=== PATIENT | female | born 1990 | race Caucasian/White ===

== ENCOUNTER 2017-04-01 17:58 | Emergency (ER) | payer MEDICAID ==
[~2017-04-01] VITALS: Ht 167.6 cm; Wt 103.0 kg
[~2017-04-01 17:58] MED LIST: ARIP2TAB9 PO; ASPI-692 PO; BIRTH CONTROL PATCH; CEPH500C24 PO; CIPR-344 PO; CYCL10TA29 PO; DICY20TA96 PO; ESC10 PO; ESCI20TA38 PO; FAMO20TA28 PO; FLU20 PO; HYDR-317 PO; HYDR-4309 PO; IBU600 PO; IBUP-1687 PO; IBUP200C71 PO; IBUP800T37 PO; KET10 PO; LOR5/325 PO; MED150I IM; MOOD STABILIZER; NO ROUTINE MEDS; NORG1TAB2 PO; OMEP-125 PO; OND4 PO; ONDA4TAB PO; OXYC-865 PO; PANT40TA65 PO; PER PO; PHEN200T32 PO; PREN-127 PO; PREN-85 PO; PROM-110 PO; RANI-324 PO; SULF-198 PO; [UNRECOGNIZED DRUG - OTHER] PO; birth control PO
--- NOTE | 2017-04-01 18:04 | ER Report ---
History and Physical Time Seen By MD: 18:03 HPI/ROS CHIEF COMPLAINT: Fall, 19 weeks , vaginal spotting HISTORY OF PRESENT ILLNESS: 26-year-old female, G2, P1, status post open fall on ice yesterday. Tonight, she notes some dark vaginal spotting. She notes no nausea or vomiting. She notes no lower abdominal pain or pressure. She notes decreased movement. Her SKATING CARHOP is Dr. Carrizales. REVIEW OF SYSTEMS: Respiratory: No cough, no dyspnea. Cardiovascular: No chest pain, no palpitations. Gastrointestinal: No vomiting, no abdominal pain. Musculoskeletal: No back pain. Allergies: Coded Allergies: diphenhydramine (Verified Allergy, Mild, HIVES, 04/01/17) Uncoded Allergies: PEROXIDE (Allergy, Intermediate, BLISTERS, 11/26/09) Home Meds Reported Medications Vits W-Ca,Fe,Fa(<1MG) ( VITAMINS) 1 Each Tablet, 1 EACH PO DAILY, TAB 01/15/17 Reviewed Nurses Notes: Yes Old Medical Records Reviewed: Yes Hx Smoking: No Smoking Status: Never Smoker Exposure to Second Hand Smoke?: No Hx Substance Use Disorder: No Hx Alcohol Use: No Constitutional Vital Sign - Last 24 Hours 04/01/17 04/01/17 04/01/17 04/01/17 18:05 18:07 18:28 18:30 Temp 98.6 Pulse 84 87 Resp 18 B/P (MAP) 127/68 (87) 127/68 103/69 (80) Pulse Ox 97 95 O2 Delivery Room Air 04/01/17 04/01/17 04/01/17 04/01/17 18:58 19:00 19:28 19:30 Pulse 85 79 B/P (MAP) 107/63 (78) 104/55 (71) Pulse Ox 96 97 04/01/17 20:06 Pulse 85 Resp 16 B/P (MAP) 132/80 (97) Pulse Ox 92 O2 Delivery Room Air Physical Exam Vital signs stable, heart tones 147 General Appearance: The patient is alert, has no immediate need for airway protection and no current signs of toxicity. Eyes: Pupils equal and round no injection. Respiratory: Chest is non tender, lungs are clear to auscultation. Cardiac: regular rate and rhythm Gastrointestinal: Abdomen is soft and non tender, no masses, bowel sounds normal. Musculoskeletal: Neck: Neck is supple and non tender. Extremities have full range of motion and are non tender. Skin: No rashes or lesions. DIFFERENTIAL DIAGNOSIS: After history and physical exam differential diagnosis was considered for vaginal bleeding including but not limited to ectopic , menses, placenta previa, miscarriage, and dysfunctional uterine bleeding. Medical Decision Making Data Points Result Diagram: 04/01/17182604/01/171826 Laboratory Hematology Test 04/01/17 18:04 04/01/17 18:27 Urine Color Yellow Urine Clarity Slightly-cloudy Urine pH 5.0 pH (4.8-9.5) Urine Specific [place] 1.030 Urine Protein Negative mg/dL (NEGATIVE) Urine Glucose (UA) Negative mg/dL (NEGATIVE) Urine Ketones Negative mg/dL (NEGATIVE) Urine Blood Negative (NEGATIVE) Urine Nitrite Negative (NEGATIVE) Urine Bilirubin Negative (NEGATIVE) Urine Urobilinogen Negative mg/dL (0.2-1.9) Urine Leukocyte Esterase Negative (NEGATIVE) Urine RBC <1 /HPF (0-2/HPF) Urine WBC 1 /HPF (0-5/HPF) Urine Squamous Epithelial Cells Many /LPF (</=FEW) Urine Bacteria Negative /HPF (NONE-FEW) Urine Mucus Few /HPF (NONE-FEW) Red Blood Count 4.82 M/uL (4.17-5.56) Mean Corpuscular Volume 81.6 fL (80.0-96.0) Mean Corpuscular Hemoglobin 27.4 pg (26.0-33.0) Mean Corpuscular Hemoglobin Concent 33.6 g/dL (32.0-36.0) Red Cell Distribution Width 13.8 % (11.5-14.5) Mean Platelet Volume 7.5 fL (7.2-11.1) Neutrophils (%) (Auto) 72.9 % (39.4-72.5) Lymphocytes (%) (Auto) 6.1 % (17.6-49.6) Monocytes (%) (Auto) 18.6 % (4.1-12.4) Eosinophils (%) (Auto) 1.5 % (0.4-6.7) Basophils (%) (Auto) 0.9 % (0.3-1.4) Nucleated RBC Relative Count (auto) 0.0 /100WBC Neutrophils # (Auto) 6.0 K/uL (2.0-7.4) Lymphocytes # (Auto) 0.5 K/uL (1.3-3.6) Monocytes # (Auto) 1.5 K/uL (0.3-1.0) Eosinophils # (Auto) 0.1 K/uL (0.0-0.5) Basophils # (Auto) 0.1 K/uL (0.0-0.1) Nucleated RBC Absolute Count (auto) 0.00 K/uL Prothrombin Time 13.1 seconds (12.0-14.4) Prothromb Time International Ratio 0.99 Activated Partial Thromboplast Time 28 seconds (23-35) Sodium Level 136 mmol/L (137-145) Potassium Level 3.8 mmol/L (3.5-5.0) Chloride Level 103 mmol/L (98-107) Carbon Dioxide Level 24 mmol/L (22-31) Blood Urea Nitrogen 9 mg/dl (7-18) Creatinine 0.60 mg/dl (0.52-1.04) Glomerular Filtration Rate Calc > 60.0 Random Glucose 92 mg/dl (75-110) Calcium Level 8.9 mg/dl (8.4-10.2) Total Bilirubin 0.2 mg/dl (0.2-1.3) Aspartate Amino Transf (AST/SGOT) 12 U/L (0-35) Alanine Aminotransferase (ALT/SGPT) 19 U/L (0-56) Alkaline Phosphatase 40 U/L (0-126) Total Protein 6.5 gm/dl (6.3-8.2) Albumin 3.5 g/dl (3.5-5.0) Human Chorionic Gonadotropin, Qual Positive (NEGATIVE) Human Chorionic Gonadotropin, Quant 5719 mIU/ml Chemistry Test 04/01/17 18:04 04/01/17 18:27 Urine Color Yellow Urine Clarity Slightly-cloudy Urine pH 5.0 pH (4.8-9.5) Urine Specific [place] 1.030 Urine Protein Negative mg/dL (NEGATIVE) Urine Glucose (UA) Negative mg/dL (NEGATIVE) Urine Ketones Negative mg/dL (NEGATIVE) Urine Blood Negative (NEGATIVE) Urine Nitrite Negative (NEGATIVE) Urine Bilirubin Negative (NEGATIVE) Urine Urobilinogen Negative mg/dL (0.2-1.9) Urine Leukocyte Esterase Negative (NEGATIVE) Urine RBC <1 /HPF (0-2/HPF) Urine WBC 1 /HPF (0-5/HPF) Urine Squamous Epithelial Cells Many /LPF (</=FEW) Urine Bacteria Negative /HPF (NONE-FEW) Urine Mucus Few /HPF (NONE-FEW) White Blood Count 8.3 k/uL (4.5-11.0) Red Blood Count 4.82 M/uL (4.17-5.56) Hemoglobin 13.2 g/dL (12.0-16.0) Hematocrit 39.3 % (34.0-47.0) Mean Corpuscular Volume 81.6 fL (80.0-96.0) Mean Corpuscular Hemoglobin 27.4 pg (26.0-33.0) Mean Corpuscular Hemoglobin Concent 33.6 g/dL (32.0-36.0) Red Cell Distribution Width 13.8 % (11.5-14.5) Platelet Count 209 K/uL (150-450) Mean Platelet Volume 7.5 fL (7.2-11.1) Neutrophils (%) (Auto) 72.9 % (39.4-72.5) Lymphocytes (%) (Auto) 6.1 % (17.6-49.6) Monocytes (%) (Auto) 18.6 % (4.1-12.4) Eosinophils (%) (Auto) 1.5 % (0.4-6.7) Basophils (%) (Auto) 0.9 % (0.3-1.4) Nucleated RBC Relative Count (auto) 0.0 /100WBC Neutrophils # (Auto) 6.0 K/uL (2.0-7.4) Lymphocytes # (Auto) 0.5 K/uL (1.3-3.6) Monocytes # (Auto) 1.5 K/uL (0.3-1.0) Eosinophils # (Auto) 0.1 K/uL (0.0-0.5) Basophils # (Auto) 0.1 K/uL (0.0-0.1) Nucleated RBC Absolute Count (auto) 0.00 K/uL Prothrombin Time 13.1 seconds (12.0-14.4) Prothromb Time International Ratio 0.99 Activated Partial Thromboplast Time 28 seconds (23-35) Glomerular Filtration Rate Calc > 60.0 Calcium Level 8.9 mg/dl (8.4-10.2) Total Bilirubin 0.2 mg/dl (0.2-1.3) Aspartate Amino Transf (AST/SGOT) 12 U/L (0-35) Alanine Aminotransferase (ALT/SGPT) 19 U/L (0-56) Alkaline Phosphatase 40 U/L (0-126) Total Protein 6.5 gm/dl (6.3-8.2) Albumin 3.5 g/dl (3.5-5.0) Human Chorionic Gonadotropin, Qual Positive (NEGATIVE) Human Chorionic Gonadotropin, Quant 5719 mIU/ml Coagulation Test 04/01/17 18:27 Prothrombin Time 13.1 seconds Prothromb Time International Ratio 0.99 Activated Partial Thromboplast Time 28 seconds Urinalysis Test 04/01/17 18:04 Urine Color Yellow Urine Clarity Slightly-cloudy Urine pH 5.0 pH (4.8-9.5) Urine Specific [place] 1.030 Urine Protein Negative mg/dL (NEGATIVE) Urine Glucose (UA) Negative mg/dL (NEGATIVE) Urine Ketones Negative mg/dL (NEGATIVE) Urine Blood Negative (NEGATIVE) Urine Nitrite Negative (NEGATIVE) Urine Bilirubin Negative (NEGATIVE) Urine Urobilinogen Negative mg/dL (0.2-1.9) Urine Leukocyte Esterase Negative (NEGATIVE) Urine RBC <1 /HPF (0-2/HPF) Urine WBC 1 /HPF (0-5/HPF) Urine Squamous Epithelial Cells Many /LPF (</=FEW) Urine Bacteria Negative /HPF (NONE-FEW) Urine Mucus Few /HPF (NONE-FEW) EKG/Imaging Imaging Results: Ultrasound of the greater than 13 week OB was obtained. The results of the study are OB Ultrasound > 14 weeks limited HISTORY: Fall on ice. Baby motion decreased, little spotting tonight. COMPARISON STUDIES: None available FINDINGS: Intrauterine gestations: one presentation: Variable heart rate: 143 bpm Amniotic fluid index: 10.9 cm Largest amniotic fluid pocket 4.1 cm Placenta: Anterior fundal without previa or focal abnormality. Uterus: gravid, otherwise normal Maternal adnexa: Unremarkable Cervix: 4.9 cm and closed. Gestational Parameters: BPD: 4.5 cm 19 weeks and 4 days HC: 17.1 cm 19 weeks and 6 days AC: 14.6 cm 20 weeks and 0 days FL: 3.2 cm 19 weeks and 6 days Average ultrasound age (AUA): 19 weeks and 6 days JAVED: 08/20/2017 by ultrasound and 08/22/2017 clinically. Estimated weight (EFW): 317 g EFW: 62 percentile Anatomic Survey: Not performed due to limited exam. IMPRESSION: 1. Single live intrauterine gestation; estimated ultrasound age 19 weeks and 6 days. 2. No acute abnormality. 3. Other findings and measurements as above. The study was read by the radiologist. I viewed the images myself on the PACS system. ED Course/Re-evaluation ED Course Patient was admitted to an examination room. H&P was done. The difficult diagnosis was considered. Patient had a peripheral IV established. Diagnostic bloods were drawn. Patient was treated with 1 L of normal saline. Diagnostic ultrasound was ordered. Patient's abdominal exam is benign and unremarkable. Patient notes minimal spotting of dark blood. Ultrasound is unremarkable. Results are discussed with the patient. She is advised to days of bed rest. She is advised to follow-up with SKATING CARHOP. Dr. Carrizales if any further bleeding or symptoms occur. Decision to Disposition Date: Apr 01, 2017 Decision to Disposition Time: 19:48 Depart Departure Latest Vital Signs Vital Signs Date Time Temp Pulse Resp B/P (MAP) Pulse Ox O2 Delivery O2 Flow Rate FiO2 04/01/17 20:06 85 16 132/80 (97) 92 Room Air 04/01/17 18:07 98.6 Impression: Primary Impression: Coccyx contusion Additional Impressions: 19 weeks gestation of Vaginal spotting Condition: Improved Disposition: HOME OR SELF-CARE Patient Instructions: (ED) Additional Instructions: Follow-up with Dr. Carrizales if spotting continues in 2-3 days Problem Qualifiers Primary Impression: Coccyx contusion Encounter type: initial encounter Qualified Codes: S30.0XXA - Contusion of lower back and pelvis, initial encounter MANUEL GARZA DO Apr 01, 2017 18:04
[2017-04-01] MEDS ORDERED: NS(*) 0.9% 1000 ML BAG 1,000 ML IV ONE (18:08)
[2017-04-01 18:34] LABS: PLATELET COUNT, AUTOMATED 209 K/uL (150-450)
[2017-04-01 18:43] LABS: INR 0.99
[2017-04-01 20:06] VITALS: BP 132/80
--- NOTE | 2017-04-01 20:13 | RADIOLOGY IMAGING REPORT ---
FACILITY: [facility] - [place], [place] PATIENT NAME: Reina Amin : 1990 MR: [id number] V: [id number] EXAM DATE: ORDERING PHYSICIAN: MANUEL GARZA TECHNOLOGIST: Location: Patient: Reina Amin : 1990 Visit/Account:[id number] Date of Sevice: 04/01/2017 OB Ultrasound > 14 weeks limited HISTORY: Fall on ice. Baby motion decreased, little spotting tonight. COMPARISON STUDIES: None available FINDINGS: Intrauterine gestations: one presentation: Variable heart rate: 143 bpm Amniotic fluid index: 10.9 cm Largest amniotic fluid pocket 4.1 cm Placenta: Anterior fundal without previa or focal abnormality. Uterus: gravid, otherwise normal Maternal adnexa: Unremarkable Cervix: 4.9 cm and closed. Gestational Parameters: BPD: 4.5 cm 19 weeks and 4 days HC: 17.1 cm 19 weeks and 6 days AC: 14.6 cm 20 weeks and 0 days FL: 3.2 cm 19 weeks and 6 days Average ultrasound age (AUA): 19 weeks and 6 days JAVED: 08/20/2017 by ultrasound and 08/22/2017 clinically. Estimated weight (EFW): 317 g EFW: 62 percentile Anatomic Survey: Not performed due to limited exam. IMPRESSION: 1. Single live intrauterine gestation; estimated ultrasound age 19 weeks and 6 days. 2. No acute abnormality. 3. Other findings and measurements as above. Report Dictated By: Rashid Patricio at 04/01/2017 8:04 PM Report E-Signed By: Rashid Patricio at 04/01/2017 8:08 PM WSN:[id number]
== END 2017-04-01 20:06 | disposition home or self-care (01) ==
LOC: ER 18:06
DX: O46.92 Antepartum hemorrhage, unspecified, second trimester (principal); Z3A.19 19 weeks gestation of pregnancy; S30.0XXA Contusion of lower back and pelvis, initial encounter; W00.0XXA Fall on same level due to ice and snow, initial encounter
CPT/HCPCS: 76805; 81001; 84702; 84703; 85025; 85610; 85730; 96360; 96361; 99284; J7030; 82040; 82247; 82310; 82374; 82435; 82565; 82947; 84075; 84132; 84155; 84295; 84450; 84460; 84520

== ENCOUNTER 2017-08-08 17:25 | Outpatient (CLI) | payer MEDICAID ==
[~2017-08-08] VITALS: Ht 168.9 cm; Wt 112.9 kg
[~2017-08-08 17:25] MED LIST changes: -RANI-324 PO; +RANI-366 PO
[2017-08-08 17:55] VITALS: BP 138/63; Ht 168.9 cm; Wt 112.9 kg
[2017-08-08] MEDS ORDERED: ACETAMINOPHEN 500 MG TAB PO PRN (18:05)
[2017-08-08 18:26] LABS: PLATELET COUNT, AUTOMATED 177 K/uL (150-450)
[2017-08-08] MEDS ORDERED: ACETA/BUTAL/CAFF 325/50/40 TAB PO ONE (19:10)
--- NOTE | 2017-08-08 19:44 | History & Physical ---
History of Present Illness Age of Patient: 27 : 2 Para or TPAL: 1 EDC per LMP: August 22, 2017 Estimated Gestational Age: 38.0 Chief Complaint Headache and elevated BP History of Present Illness Pt is 38 weeks and called me nancy to report she had a severe headache and was instructed by the office to call me if her BP was elevated. She noted a BP at [employer] of 146 systolic. She reports she has had a headache for several days without relief from Tylenol. Denies scotomata or RUQ abdominal pain. Denies obstetrical issues or complaints. She is scheduled for c/s next week to avoid 4th degree repair that she had before. Her BP here in observation have all been normal. She doesn't look terribly uncomfortable in bed with the TV displayed loud and her toddler running around screaming. She admits she drinks caffeinated soda daily. Past Medical, Surgical, Family and Obstetric Histories reviewed. Please see ACOG chart. History Obstetrical History: 1 prior vaginal delivery, vacuum assist with 3rd degree laceration. Allergies: Coded Allergies: diphenhydramine (Verified Allergy, Mild, HIVES, 04/01/17) Uncoded Allergies: PEROXIDE (Allergy, Intermediate, BLISTERS, 11/26/09) Med Rec Home Meds Reported Medications Vits W-Ca,Fe,Fa(<1MG) ( VITAMINS) 1 Each Tablet, 1 EACH PO DAILY, TAB 01/15/17 Review of Systems All Systems Reviewed/Normal: Yes, Except as Noted Other as per HPI Exam General Exam Vital Signs Vital Signs Date Time Temp Pulse Resp B/P (MAP) Pulse Ox O2 Delivery O2 Flow Rate FiO2 08/08/17 17:55 99.1 16 138/63 (88) 94 Room Air General Apperance: Alert/Awake/No Acute Distress Neuro: No Gross deficits Eyes: Normal Extraocular Movement & Vison Neck: No Masses Cardiovascular: Regular Rate and Rhythm Respiratory: No Respiratory Distress, Clear to Auscultation Abdomen: Soft, Non-Tender, Non-Distended, Gravid - Non-Tender, RUQ Non-Tender Integumentary: Skin Intact without Lesions or Rash Psychological: Alert & Oriented X3, Appropriate Mood & Affect Presentation: Vertex Fetus Heart Tone Variabilty: Minimal FHT Accelerations: 10X10 FHT Category: II Medical Decision Making Data Points Result Diagram: 08/08/17181108/08/171811 Vital Signs Date Time Temp Pulse Resp B/P (MAP) Pulse Ox O2 Delivery O2 Flow Rate FiO2 08/08/17 17:55 99.1 16 138/63 (88) 94 Room Air Hematology Test 08/08/17 17:55 08/08/17 18:12 Urine Random Creatinine 21.5 mg/dl Urine Random Total Protein 12 mg/dl (<11) Red Blood Count 4.53 M/uL (4.17-5.56) Mean Corpuscular Volume 79.1 fL (80.0-96.0) Mean Corpuscular Hemoglobin 27.4 pg (26.0-33.0) Mean Corpuscular Hemoglobin Concent 34.7 g/dL (32.0-36.0) Red Cell Distribution Width 14.5 % (11.5-14.5) Mean Platelet Volume 7.8 fL (7.2-11.1) Neutrophils (%) (Auto) 72.4 % (39.4-72.5) Lymphocytes (%) (Auto) 20.6 % (17.6-49.6) Monocytes (%) (Auto) 6.2 % (4.1-12.4) Eosinophils (%) (Auto) 0.5 % (0.4-6.7) Basophils (%) (Auto) 0.3 % (0.3-1.4) Nucleated RBC Relative Count (auto) 0.1 /100WBC Neutrophils # (Auto) 6.5 K/uL (2.0-7.4) Lymphocytes # (Auto) 1.8 K/uL (1.3-3.6) Monocytes # (Auto) 0.6 K/uL (0.3-1.0) Eosinophils # (Auto) 0.0 K/uL (0.0-0.5) Basophils # (Auto) 0.0 K/uL (0.0-0.1) Nucleated RBC Absolute Count (auto) 0.01 K/uL Sodium Level 136 mmol/L (137-145) Potassium Level 3.7 mmol/L (3.5-5.0) Chloride Level 103 mmol/L (98-107) Carbon Dioxide Level 22 mmol/L (22-31) Blood Urea Nitrogen 7 mg/dl (7-18) Creatinine 0.50 mg/dl (0.52-1.04) Glomerular Filtration Rate Calc > 60.0 Random Glucose 90 mg/dl (75-110) Uric Acid 4.7 mg/dl (2.5-7.5) Calcium Level 9.5 mg/dl (8.4-10.2) Total Bilirubin 0.2 mg/dl (0.2-1.3) Aspartate Amino Transf (AST/SGOT) 14 U/L (0-35) Alanine Aminotransferase (ALT/SGPT) 16 U/L (0-56) Alkaline Phosphatase 82 U/L (0-126) Lactate Dehydrogenase 330 U/L (0-590) Total Protein 5.6 gm/dl (6.3-8.2) Albumin 3.2 g/dl (3.5-5.0) Chemistry Test 08/08/17 17:55 08/08/17 18:12 Urine Random Creatinine 21.5 mg/dl Urine Random Total Protein 12 mg/dl (<11) White Blood Count 8.9 k/uL (4.5-11.0) Red Blood Count 4.53 M/uL (4.17-5.56) Hemoglobin 12.4 g/dL (12.0-16.0) Hematocrit 35.8 % (34.0-47.0) Mean Corpuscular Volume 79.1 fL (80.0-96.0) Mean Corpuscular Hemoglobin 27.4 pg (26.0-33.0) Mean Corpuscular Hemoglobin Concent 34.7 g/dL (32.0-36.0) Red Cell Distribution Width 14.5 % (11.5-14.5) Platelet Count 177 K/uL (150-450) Mean Platelet Volume 7.8 fL (7.2-11.1) Neutrophils (%) (Auto) 72.4 % (39.4-72.5) Lymphocytes (%) (Auto) 20.6 % (17.6-49.6) Monocytes (%) (Auto) 6.2 % (4.1-12.4) Eosinophils (%) (Auto) 0.5 % (0.4-6.7) Basophils (%) (Auto) 0.3 % (0.3-1.4) Nucleated RBC Relative Count (auto) 0.1 /100WBC Neutrophils # (Auto) 6.5 K/uL (2.0-7.4) Lymphocytes # (Auto) 1.8 K/uL (1.3-3.6) Monocytes # (Auto) 0.6 K/uL (0.3-1.0) Eosinophils # (Auto) 0.0 K/uL (0.0-0.5) Basophils # (Auto) 0.0 K/uL (0.0-0.1) Nucleated RBC Absolute Count (auto) 0.01 K/uL Glomerular Filtration Rate Calc > 60.0 Uric Acid 4.7 mg/dl (2.5-7.5) Calcium Level 9.5 mg/dl (8.4-10.2) Total Bilirubin 0.2 mg/dl (0.2-1.3) Aspartate Amino Transf (AST/SGOT) 14 U/L (0-35) Alanine Aminotransferase (ALT/SGPT) 16 U/L (0-56) Alkaline Phosphatase 82 U/L (0-126) Lactate Dehydrogenase 330 U/L (0-590) Total Protein 5.6 gm/dl (6.3-8.2) Albumin 3.2 g/dl (3.5-5.0) Urinalysis Test 08/08/17 17:55 Urine Random Creatinine 21.5 mg/dl Urine Random Total Protein 12 mg/dl (<11) VTE Prophylasis: Adult Deep Vein Thrombosis/Pulmonary: No Pharmacological Contraindicati: Pt at Low Risk for VTE Mechanical Contraindications: Pt at Low Risk for VTE Assessment and Plan Problems: (1) headache in third trimester Status: Acute Assessment & Plan: Strongly suspecting dehydration and caffeine headache. Labs are normal and clinically does not appear to be preeclampsia. Will hydrate and see if baby's tracing improves to category 1. If so, will discharge home with Fioricet for headache and keep plan for delivery next week. JACINTO NETTLES MD August 08, 2017 19:43
[2017-08-08] MEDS ORDERED: BUTA1TAB14 PO (19:45)
[2017-08-08] MEDS: LR(*) 1000 ML BAG 1,000 ML IV PRN ×2 (20:18→20:19)
[2017-08-08] MEDS ORDERED: ACET500T68 PO (20:23)
[2017-08-08] MEDS ORDERED: ACETA/BUTAL/CAFF 325/50/40 TAB PO PRN (21:00)
== END 2017-08-08 21:29 | disposition home or self-care (01) ==
LOC: UNDOADMIN 17:25 → OB 17:25 → L&D 17:25 → UNDODISIN 21:29 → L&D 21:29 → EDSTATUS 08-15 07:30
PROVIDERS: ATTEND Obstetrics & Gynecology
DX: O29.43 Spinal and epidural anesthesia induced headache during pregnancy, third trimester (principal); Z3A.38 38 weeks gestation of pregnancy
CPT/HCPCS: 36415; 82570; 83615; 84156; 84550; 85025; G0463; J7120; 82040; 82247; 82310; 82374; 82435; 82565; 82947; 84075; 84132; 84155; 84295; 84450; 84460; 84520; 99213

== ENCOUNTER 2017-08-09 19:28 | Observation (INO) | payer MEDICAID ==
[2017-08-08 17:55] VITALS: BMI 39.6
[2017-08-09] MEDS ORDERED: DLR(*) 1000 ML BAG 1,000 ML IV PRN (19:32)
[2017-08-09] MEDS ORDERED: LR(*) 1000 ML BAG 1,000 ML IV PRN (19:32)
== END 2017-08-09 20:50 | disposition home or self-care (01) ==
LOC: OB 19:28
PROVIDERS: ADMIT Obstetrics & Gynecology; ATTEND Obstetrics & Gynecology
DX: O36.8130 Decreased fetal movements, third trimester, not applicable or unspecified (principal); Z3A.38 38 weeks gestation of pregnancy
CPT/HCPCS: G0378; G0379

== ENCOUNTER → 2017-08-09 | Outpatient (CLI) | payer MEDICAID ==
[2017-08-08 17:55] VITALS: BMI 39.6
[~2017-08-09] MED LIST changes: +ACET500T68 PO; +BUTA1TAB14 PO
--- NOTE | 2017-08-09 13:54 | RADIOLOGY IMAGING REPORT ---
FACILITY: [facility] PATIENT NAME: Reina Amin : 1990 MR: [id number] V: [id number] EXAM DATE: ORDERING PHYSICIAN: JACINTO NETTLES TECHNOLOGIST: Location: [facility] - [place] Patient: Reina Amin : 1990 Visit/Account:[id number] Date of Sevice: 08/09/2017 Exam type: BIOPHYSICAL W/O NST History: Decreased movement Comparison: April 01, 2017. Findings: A single fetus was demonstrated in cephalic presentation. The heart rate was 156 bpm period ESTEFANÍA measured 13.82 cm. The deepest pocket measured 6.43 cm. The biophysical profile score was eight out of eight. Gestational age by last menstrual period 38 weeks and one day. IMPRESSION: 1. Biophysical profile score was eight out of eight Report Dictated By: Tawana Rico MD at 08/09/2017 1:49 PM Report E-Signed By: Tawana Rico MD at 08/09/2017 1:51 PM WSN:[email or web address]
== END ==
LOC: RAD 10:42
PROVIDERS: ATTEND Obstetrics & Gynecology
DX: O36.8130 Decreased fetal movements, third trimester, not applicable or unspecified (principal); Z3A.38 38 weeks gestation of pregnancy
CPT/HCPCS: 76819

== ENCOUNTER 2017-08-15 04:53 | Inpatient (IN) | payer MEDICAID ==
[~2017-08-15] VITALS: Ht 167.6 cm; Wt 93.0 kg
[2017-08-15] VITALS (25 sets, daily range): BP systolic 98–131; BP diastolic 43–86; Ht 167.6 cm; Wt 93.0 kg
[2017-08-15] MEDS ORDERED: DLR(*) 1000 ML BAG 1,000 ML IV PRN ×2 (04:54→08:19)
[2017-08-15] MEDS ORDERED: CITRIC ACID/SOD CITRATE 30 ML PO ONE (04:55)
[2017-08-15] MEDS ORDERED: METOCLOPRAMIDE 10 MG/2 ML SDV IVP ONE (04:55)
[2017-08-15] MEDS ORDERED: FAMOTIDINE 20 MG/50 ML PREMIX IVPB ONE (04:55)
[2017-08-15] MEDS ORDERED: cefOXitin SOD 2 GM VIAL 2 GM in NS(*) 0.9% 100 ML BAG 100 ML IVPB ONE (04:55)
[2017-08-15] MEDS ORDERED: LIDOCAINE/SOD BICARB 8.4% SYR ONE (05:20)
[2017-08-15] MEDS: LR(*) 1000 ML BAG 1,000 ML IV SCH ×2 (06:02→06:13)
[2017-08-15 06:10] LABS: PLATELET COUNT, AUTOMATED 162 K/uL (150-450)
[2017-08-15] MEDS ORDERED: OXYTOCIN 10 UNIT/ML SDV ONE (07:02)
[2017-08-15] MEDS ORDERED: MORPHINE PF 5 MG/10 ML AMP ONE (07:02)
[2017-08-15] MEDS ORDERED: fentaNYL CITR 100 MCG/2 ML AMP ONE (07:02)
--- NOTE | 2017-08-15 07:18 | History & Physical ---
History of Present Illness Age of Patient: 27 : 2 Para or TPAL: 1 EDC per LMP: August 22, 2017 Estimated Gestational Age: 39.0 Chief Complaint History of Present Illness 26 yo at 39 weeks here for scheduled delivery by . She is electing this method of delivery due to a history of a traumatic first delivery by vacuum and with 3rd degree laceration and difficult recovery. She also wants a BTL. She has a history of abdominal surgery with bowel surgery and appendectomy due to a bowel torsion back in 2011. She has also had a cholecystectomy. complicated by bipolar disorder well managed with medication. Past Medical, Surgical, Family and Obstetric Histories reviewed. Please see ACOG chart. History Allergies: Coded Allergies: diphenhydramine (Verified Allergy, Mild, HIVES, 04/01/17) Uncoded Allergies: PEROXIDE (Allergy, Intermediate, BLISTERS, 11/26/09) Med Rec Home Meds Reported Medications Vits W-Ca,Fe,Fa(<1MG) ( VITAMINS) 1 Each Tablet, 1 EACH PO DAILY, TAB 01/15/17 Discontinued Reported Medications Acetaminophen (TYLENOL EXTRA STRENGTH) 500 Mg Tablet, 500 MG PO, TAB 08/08/17 Discontinued Scripts Butalb/Acetaminophen/Caff 50-325-40 Mg (FIORICET 50-325-40) 1 Each Tablet, 1-2 TAB PO Q4H Y for HEADACHE, #30 TAB 0 Refills Prov:JACINTO NETTLES MD 08/08/17 Review of Systems Other As per HPI. All other systems reported Negative. Exam General Exam Vital Signs Vital Signs Date Time Temp Pulse Resp B/P (MAP) Pulse Ox O2 Delivery O2 Flow Rate FiO2 08/15/17 06:00 97.6 87 18 117/71 (86) 97 Room Air General Apperance: Alert/Awake/No Acute Distress Neuro: No Gross deficits Cardiovascular: Regular Rate and Rhythm Respiratory: No Respiratory Distress Abdomen: Soft, Non-Tender, Non-Distended, Gravid - Non-Tender, Other (midline scar from umbilicus cephalad) Integumentary: Skin Intact without Lesions or Rash Psychological: Alert & Oriented X3, Appropriate Mood & Affect Fetus Heart Tone Variabilty: Moderate FHT Accelerations: 15X15 FHT Category: I Medical Decision Making Data Points Result Diagram: 08/15/17 0557 VTE Prophylasis: Adult Deep Vein Thrombosis/Pulmonary: No Pharmacological Contraindicati: Pt at Low Risk for VTE Mechanical Contraindications: Pt at Low Risk for VTE Assessment and Plan Problems: (1) History of third degree perineal laceration Assessment & Plan: scheduled . R/B/A reviewed again including risk of prior abdominal surgery with possible scarring. Confirmed again BTL desired. (2) Sterilization JACINTO NETTLES MD August 15, 2017 07:17
[2017-08-15] MEDS ORDERED: KETOROLAC 30 MG/ML VIAL ONE (07:46)
[2017-08-15] MEDS ORDERED: ONDANSETRON 4 MG/2 ML VIAL ONE (07:46)
[2017-08-15] MEDS ORDERED: PHENYLEPHRINE/NS/PF 0.4MG/10ML ONE (07:46)
[2017-08-15] MEDS ORDERED: NS 0.9% IRRIGATION 1000ML PLCT IR ONE ×2 (08:12→08:13)
[2017-08-15] MEDS ORDERED: OXYTOCIN 30 UNIT/D5LR 500 ML 500 ML IV PRN (08:19)
[2017-08-15] MEDS ORDERED: SIMETHICONE 80 MG CHEW CHEW PRN (08:20)
[2017-08-15] MEDS ORDERED: PROMETHAZINE 25 MG/ML 1 ML AMP IVP PRN (08:20)
[2017-08-15] MEDS ORDERED: ACETAMINOPHEN 325 MG TAB PO PRN (08:20)
[2017-08-15] MEDS ORDERED: LANOLIN OINT 7 GM TUBE TP PRN (08:20)
[2017-08-15] MEDS ORDERED: ONDANSETRON 4 MG/2 ML VIAL IV PRN (08:20)
--- NOTE | 2017-08-15 08:26 | Post Operative Note ---
Operative Note - [employer] Operative Day Date: August 15, 2017 Time: 08:20 Physicians Surgeon: All Glass Edger: Tor Anesthesia: Spinal Diagnosis Pre-Op Diagnosis: Prior 3rd degree perineal laceration Sterilization Post-Op Diagnosis: same Procedure Findings: male, vtx Procedure(s): Primary LTCS Specimen Removed:(Maybe N/A): placenta Complications: none #[id number] Fluids Fluids: 2500 ml Estimated Blood Loss: 500 ml Dictated Date OP Note Dictated: August 15, 2017 Time OP Note Dictated: 08:21 Copies to: JACINTO NETTLES MD, TRAVIS MD August 15, 2017 08:26
[2017-08-15] MEDS: FAMOTIDINE 20 MG TAB PO SCH ×2 (09:00→20:56)
[2017-08-15] MEDS: DOCUSATE CALCIUM 240 MG CAP PO SCH ×2 (09:00→20:56)
--- NOTE | 2017-08-15 09:21 | Anesthesia OB Pre-Anes Eval ---
History of Present Illness Anesthesia Start Date: August 15, 2017 Anesthesia Start Time: 07:10 OB Anesthesia Diagnosis: primary c/section Current Complication: obesity Complications: None known EDC: August 22, 2017 : 2 Para: 1 Pain Ratin Heart Tones: WNL Result Diagram: 08/15/17 0557 Height (Inches): 66.00 Weight (Pounds): 205 BMI Calculated: 33.08 Past Medical History Medical History: no pertinent history Surgical History: cholecystectomy, other (Bowel Obstruction) Previous Anesthesia: general, epidural Attended Childbirth Classes?: No Hx Anesthesia Reactions: No Hx Family Anesthesia Reaction: No Home Meds Reported Medications Vits W-Ca,Fe,Fa(<1MG) ( VITAMINS) 1 Each Tablet, 1 EACH PO DAILY, TAB 01/15/17 Discontinued Reported Medications Acetaminophen (TYLENOL EXTRA STRENGTH) 500 Mg Tablet, 500 MG PO, TAB 08/08/17 Discontinued Scripts Butalb/Acetaminophen/Caff 50-325-40 Mg (FIORICET 50-325-40) 1 Each Tablet, 1-2 TAB PO Q4H Y for HEADACHE, #30 TAB 0 Refills Prov:JACINTO NETTLES MD 08/08/17 Allergies: Coded Allergies: diphenhydramine (Verified Allergy, Mild, HIVES, 04/01/17) Uncoded Allergies: PEROXIDE (Allergy, Intermediate, BLISTERS, 11/26/09) Anesthesia OB ROS Neurological: No migraines/headaches, No seizures, No neuropathy Eyes ROS: other (wearing glasses) ENT: Denies Tooth caps, Denies Loose teeth, Denies Chipped teeth, Denies Dentures, Denies Bridges, Denies Retainers, Denies Veneers, Denies Implants, Denies Tongue ring Pulmonary: No asthma, No smoker (pks/day/yrs) Airway Class: ll Cardiovascular ROS: No edema, No arrhythmia GI ROS: NPO Last Solids Date: August 14, 2017 Last Solids Time: 21:00 ROS: No Herpes, No STD(s), No Liver Disease, No Renal Disease Endocrine ROS: No diabetes, No gestational diabetes, No thyroid disorder Musculoskeletal ROS: No low back pain, No low back injury, No scoliosis ASA Classification: 3 Assessment and Plan Anesthesia Plan: SAB Assessment Past Medical, Surgical, Family and Obstetric Histories reviewed. Please see ACOG chart. Spinal block risks and benefits explained to patient's satisfaction. General anesthesia risks and benefits explained to patient's satisfaction. Questions invited, none asked. Anesthesia Stop Day: August 15, 2017 Anesthesia Stop Time: 08:30 DOUGLAS MESSER CRNA August 15, 2017 09:21
--- NOTE | 2017-08-15 13:46 | OPERATIVE REPORT 1 ---
EVENT DATE: August 15, 2017 SURGEON: José Carrizales MD ANESTHESIOLOGIST: Jessica Napier CRNA ANESTHESIA: Spinal PROJECT FACILITATOR: Randall Lentz MD PREOPERATIVE DIAGNOSIS 1. Prior third-degree peroneal laceration with trauma. 2. Sterilization. POSTOPERATIVE DIAGNOSIS 1. Prior third-degree peroneal laceration with trauma. 2. Sterilization. PROCEDURE PERFORMED 1. Elective primary low transverse section via Pfannenstiel skin incision. 2. tubal ligation. ESTIMATED BLOOD LOSS 500 mL. FLUIDS 2500 mL IV crystalloid. URINE OUTPUT 200 mL. FINDINGS Male , cephalic, right occiput anterior position. Apgars 9 and 9. Nuchal cord x 2. Normal-appearing uterus, tubes and ovaries. PROCEDURE IN DETAIL The patient was brought to the operating room with a working IV and spinal anesthetic was placed. She was then moved to the dorsal supine position with leftward tilt and prepped and draped in the usual sterile fashion. Using a knife, a Pfannenstiel skin incision was made, carried through to the underlying rectus fascia. This was nicked in the midline and extended laterally with Rae scissors. Rectus muscles were dissected off superiorly and inferiorly and then in the midline. The peritoneum was entered sharply and extended superiorly and inferiorly and put on lateral stretch. A bladder blade was inserted. The vesicouterine peritoneum was tented and entered sharply and extended laterally. A bladder flap was created digitally. Bladder blade was reinserted here. This exposed the lower uterine segment of the uterus. Using a scalpel, a low transverse incision was made and carried through to the intraamniotic space. There was clear fluid upon amniotomy. A hand was inserted. The 's head was elevated through the incision. Fundal pressure was applied. The infant's head delivered atraumatically. There was nuchal cord x 2, easily reduced. Mouth and nose were bulb suctioned. Further fundal pressure effected the deliver of the remainder of the infant, and the cord was clamped and cut. The infant was passed to the waiting resuscitation team. Cord sample was obtained. The placenta was delivered manually. Uterus was exteriorized and cleared of all clots and debris. The Penningtons were placed on the incision to delineate the uterine incision edges and for hemostasis. The uterine repair was performed with a #1 Monocryl in a running locking stitch. Second suture of the same type was used to imbricate the first layer, completing a two-layer closure. This was hemostatic upon completion. The tubal ligation was performed as follows. The right tube was grasped in the isthmic portion and elevated while a knuckle of tube was created with a plain gut tie. This was doubly ligated, and a 1.5 cm segment of tube was excised and sent to pathology. Same procedure was followed on the contralateral side without complication. Uterus was returned to the abdomen, and bilateral pelvic gutters were irrigated and swept clear of clots and debris. The incision was inspected in situ, found to be hemostatic. Therefore the parietal peritoneum was repaired using a 3-0 Vicryl in a running nonlocking stitch. Rectus muscles were reapproximated in midline with same stitch. The rectus muscles were inspected and found to be hemostatic, therefore the rectus fascia was repaired using an #0-Vicryl in a running nonlocking stitch. Subcuticular space was irrigated, swept clear of clots and debris. space was closed with 3-0 Vicryl Plus in a running non-locking stitch. The skin was repaired using a 4-0 Monocryl simple subdermal and covered with Dermabond skin adhesive. She tolerated the procedure well. Sponge, lap, needle and instrument counts were all correct x three. She was taken to recovery in stable condition. RODRICK
[2017-08-15] MEDS: KETOROLAC 30 MG/ML VIAL IVP SCH ×2 (13:52→19:57)
[2017-08-15] MEDS ORDERED: NALOXONE HCL 0.4 MG/ML VIAL IV PRN (15:35)
[2017-08-15] MEDS ORDERED: NALBUPHINE HCL 10 MG/ML AMP IVP PRN (15:35)
[2017-08-15] MEDS ORDERED: ZOLPIDEM TARTRATE 5 MG TAB PO PRN (21:00)
[2017-08-16] MEDS: KETOROLAC 30 MG/ML VIAL IVP SCH (01:59)
[2017-08-16 03:00] VITALS: BP 110/62
[2017-08-16 06:41] LABS: PLATELET COUNT, AUTOMATED 153 K/uL (150-450)
[2017-08-16 07:20] VITALS: BP 112/60
[2017-08-16] MEDS ORDERED: MEASLES,MUMP,RUBELLA VAC 0.5ML SUBQ ONE (08:20)
[2017-08-16] MEDS ORDERED: INFLUENZA VIRUS VAC 0.5 ML SYR IM ONLY ONE (08:20)
[2017-08-16] MEDS ORDERED: DIPHTH/TETANUS/ACEL. PERTUSSIS IM ONLY ONE (08:20)
--- NOTE | 2017-08-16 08:30 | OB/GYN Progress Note ---
OB Subjective Progress Notes Subjective Doing well. Pain controlled and tolerating regular diet. GI: NEG Nausea : Voiding Well Pain: Mild OB Objective Physical Exam Vital Signs Date Time Temp Pulse Resp B/P (MAP) Pulse Ox O2 Delivery O2 Flow Rate FiO2 08/16/17 05:00 92 Room Air 08/16/17 04:30 2.0 08/16/17 03:00 98.5 16 110/62 (78) 08/15/17 23:37 79 General Appearance: Alert/Awake/No Acute Distress Neurological: No Gross deficits Respiratory: No Respiratory Distress Abdomen: Soft, Non-Tender, Non-Distended, Fundus Firm, Non-Tender Incision: Clean, Intact, Other (moist from body sweat) Integumentary: Skin Intact without Lesions or Rash Psychological: Alert & Oriented X3, Appropriate Mood & Affect Result Diagram: 08/16/17 0629 Assessment and Plan 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 Routine care JACINTO NETTLES MD August 16, 2017 08:30
[2017-08-16] MEDS: FAMOTIDINE 20 MG TAB PO SCH ×2 (09:00→21:38)
[2017-08-16] MEDS: IBUPROFEN 800 MG TAB PO SCH ×2 (09:00→16:13)
[2017-08-16] MEDS: DOCUSATE CALCIUM 240 MG CAP PO SCH ×2 (09:00→21:38)
[2017-08-16 09:40] VITALS: BP 119/68
--- NOTE | 2017-08-16 12:07 | Anesthesia Post Eval Note ---
Anesthesia Post Eval Note Vital Signs Date Time Temp Pulse Resp B/P (MAP) Pulse Ox O2 Delivery O2 Flow Rate FiO2 08/16/17 05:00 92 Room Air 08/16/17 04:30 2.0 08/16/17 03:00 98.5 16 110/62 (78) 08/15/17 23:37 79 Pt able to participate in Eval: Yes Cardiovascular Status: Satisfactory Respiratory Status: Satisfactory Pain Managment: Satisfactory PO Nausea/Vomiting: Satisfactory Temperature Management: Satisfactory Mental Status: Satisfactory, Alert, Oriented X3 Post-Op Hydration Status: Satisfactory, Tolerating PO Well, Voiding w/o Difficulty Anesthesia Type: SAB Anesthesia Tolerance: Tolerated procedure well without apparent anesthetic complications. LP site clear, no redness or edema. Denies headache or any residual paresthesia. Vital Signs Stable, Patient comfortable and condition stable. DOUGLAS MESSER CRNA August 16, 2017 12:07
[2017-08-16 12:40] VITALS: BP 117/64
[2017-08-16 20:30] VITALS: BP 102/60
[2017-08-17] MEDS: IBUPROFEN 800 MG TAB PO SCH ×2 (00:10→10:31)
[2017-08-17 04:00] VITALS: BP 117/64
--- NOTE | 2017-08-17 09:17 | OB/GYN Progress Note ---
OB Subjective Progress Notes Subjective Pain controlled, Tolerating diet and activity. Baby . Normal lochia. GI: POS Flatus, NEG Nausea, NEG Vomiting : Voiding Well Pain: Mild OB Objective Physical Exam Vital Signs Date Time Temp Pulse Resp B/P (MAP) Pulse Ox O2 Delivery O2 Flow Rate FiO2 08/17/17 04:00 98.2 72 18 117/64 (81) 94 Room Air 08/16/17 04:30 2.0 General Appearance: Alert/Awake/No Acute Distress Neurological: No Gross deficits Cardiovascular: Regular Rate and Rhythm Respiratory: No Respiratory Distress, Clear to Auscultation Abdomen: Soft, Non-Tender, Non-Distended, Fundus Firm, Non-Tender Incision: Clean, Intact, Other (moist from body sweat) Extremities: No Edema Integumentary: Skin Intact without Lesions or Rash Psychological: Alert & Oriented X3, Appropriate Mood & Affect Result Diagram: 08/16/17 0629 Assessment and Plan Problems: (1) History of third degree perineal laceration (2) Sterilization (3) Status post delivery Assessment & Plan: Pain controlled, Tolerating diet and activity. Baby . Normal lochia. HANS WILLIS MD August 17, 2017 09:17
[2017-08-17] MEDS ORDERED: IBUP800T37 PO (09:30)
[2017-08-17] MEDS ORDERED: OXYC-373 PO (09:30)
--- NOTE | 2017-08-17 09:32 | OB/GYN Discharge Summary ---
Discharge Summary Reason for Hosp/Final Diag: (1) History of third degree perineal laceration (2) Sterilization (3) Status post delivery Hospital Course & Plan: PLTCS and PPBTL, on day 2, Pain controlled, Tolerating diet and activity. Baby . Normal lochia. Lates Vital Signs Vital Signs Date Time Temp Pulse Resp B/P (MAP) Pulse Ox O2 Delivery O2 Flow Rate FiO2 08/17/17 04:00 98.2 72 18 117/64 (81) 94 Room Air 08/16/17 04:30 2.0 Weight (Pounds): 205 Weight (Ounces): 6.0 Result Diagram: 08/16/17 0629 Condition: Improved Discharge: Home, Self [facility] Meds Active Scripts Oxycodone Hcl/Acetaminophen (OXYCODONE-ACETAMINOPHEN 5-325) 1 Each Tablet, 1-2 EACH PO Q4H Y for PAIN, #30 TAB 0 Refills TAKE 1-2 TABLET NEEDED FOR PAIN - NO CLOSER THAN EVERY 4 HOURS. Prov:HANS WILLIS MD 08/17/17 Ibuprofen (IBUPROFEN) 800 Mg Tablet, 1 TAB PO Q8H, #30 TAB 0 Refills Take with food every 8 hours. Prov:HANS WILLIS MD 08/17/17 Reported Medications Vits W-Ca,Fe,Fa(<1MG) ( VITAMINS) 1 Each Tablet, 1 EACH PO DAILY, TAB 01/15/17 Discontinued Reported Medications Acetaminophen (TYLENOL EXTRA STRENGTH) 500 Mg Tablet, 500 MG PO, TAB 08/08/17 Discontinued Scripts Butalb/Acetaminophen/Caff 50-325-40 Mg (FIORICET 50-325-40) 1 Each Tablet, 1-2 TAB PO Q4H Y for HEADACHE, #30 TAB 0 Refills Prov:JACINTO CARRIZALES MD 08/08/17 Follow up with: Dr. Carrizales [phone] Follow up in: 6 wks PP or PO, 2 wks PO Discharge Diet: As Tolerates Discharge Activity: Pelvic Rest Copies to: HANS WILLIS MD, JOHN MD August 17, 2017 09:32
[2017-08-17] MEDS ORDERED: MAGNESIUM HYDROXIDE* 30ML UDCP PO SCH (10:05)
[2017-08-17 10:30] VITALS: BP 133/85
[2017-08-17] MEDS: DOCUSATE CALCIUM 240 MG CAP PO SCH (10:31)
[2017-08-17] MEDS: FAMOTIDINE 20 MG TAB PO SCH (10:31)
== END 2017-08-17 11:48 | disposition home or self-care (01) | DRG 766 ==
LOC: OB 04:53
PROVIDERS: ADMIT Obstetrics & Gynecology; ATTEND Obstetrics & Gynecology
PROC: 10D00Z1 Extraction of Products of Conception, Low, Open Approach (ICD-10-PCS; principal; 2017-08-15 07:30)
PROC: 0UB70ZZ Excision of Bilateral Fallopian Tubes, Open Approach (ICD-10-PCS; 2017-08-15 07:30)
DX: O82 Encounter for cesarean delivery without indication (principal); O69.81X0 Labor and delivery complicated by cord around neck, without compression, not applicable or unspecified; O99.344 Other mental disorders complicating childbirth; F31.9 Bipolar disorder, unspecified; O99.214 Obesity complicating childbirth; E66.9 Obesity, unspecified; Z3A.39 39 weeks gestation of pregnancy; Z37.0 Single live birth; Z30.2 Encounter for sterilization; Z90.49 Acquired absence of other specified parts of digestive tract; Z88.8 Allergy status to other drugs, medicaments and biological substances; Z68.33 Body mass index [BMI] 33.0-33.9, adult
CPT/HCPCS: 36415; 85014; 85018; 85025; 86850; 86900; 86901; 88302; J0694; J1885; J2270; J2370; J2405; J2590; J2765; J3010; J3490; J7050; J7120